=== PATIENT | female | born 1955 | race American Indian/Alaskan Native ===

== ENCOUNTER 2017-02-23 09:04 | Day surgery (SDC) | payer MEDICAID ==
[~2017-02-23 09:04] MED LIST: Metoclopramide 10 MG/2 ML SDV IV PRN
[2017-02-23] MEDS ORDERED: Propofol 1,000 MG/100 ML SDV ONE (12:15)
[2017-02-23 15:05] VITALS: BP 162/55
--- NOTE | 2017-02-23 16:13 | OR ---
DATE OF OPERATION: 02/23/2017 PREOPERATIVE DIAGNOSIS: Weight loss. POSTOPERATIVE DIAGNOSES: 1. Weight loss. 2. 2 cm sliding hiatal hernia. 3. Transverse colon polyp, otherwise normal colonoscopy. PROCEDURE: 1. Colonoscopy with snare cautery polypectomy. 2. Upper endoscopy. COMPLICATIONS: None. DRAINS: None. SPECIMENS: Transverse colon polyp. ESTIMATED BLOOD LOSS: Minimal. ANESTHESIA: General propofol anesthesia. INDICATION: Ms. Cardenas is a 61-year-old female with a history of weight loss, which is unexplained. She does have poor eating habits. She was sent for upper and lower endoscopy. The above-mentioned procedure were explained. The risks, benefits, complications were explained. Patient understood and agreed and was brought to the operating room. DESCRIPTION OF PROCEDURE: The patient was brought to the operating room, placed in the left lateral decubitus position. Satisfactory general propofol anesthesia was administered. We began by performing the colonoscopy. Rectal examination was within normal limits. I then placed the colonoscope by finger introduction into the rectum and subsequently advanced this to the level of the cecum. The cecum was identified by the appendiceal orifice, the ileocecal valve, as well as the cecal strap. Intubation of the terminal ileum revealed no abnormalities. Careful evaluation of mucosa was performed on withdrawal. This revealed no telangiectasias, no new plastic growths, no diverticula, however, there was a medium-sized 5- 10 mm polyp identified in the transverse colon just distal to the hepatic flexure. This was then removed by snare cautery polypectomy. This was then completely removed and retrieved. The polypectomy site was satisfactory. The remainder of the colon was within normal limits. I then performed a retroflexion maneuver in the rectum, which revealed no abnormalities. The colon was decompressed and the endoscope was withdrawn. Next, we turned the table around and perform an upper endoscopy with the patient now in a 45-degree head-up position with a mouth guard in place. The upper endoscope was then placed into the oral cavity and advanced under direct vision into the second portion of the duodenum. The duodenum was evaluated and appeared normal. The bulb appeared normal. The stomach appeared within normal limits. No significant findings of gastritis or ulceration. No neoplastic growths or telangiectasias. Retroflexion was performed in the stomach revealed a small hiatal hernia, which appeared to be the sliding type. The stomach was decompressed and careful evaluation revealed a 2 cm hiatal hernia. The Z-line was normal and the esophagus was normal as well on withdrawal. The endoscope was removed. The patient was woken in the OR and taken to the PACU for recovery. There were no complications. Instrument count was correct. Patient tolerated the procedure well. JERROD/CHINYERE /[id number]
== END 2017-02-23 14:57 | disposition home or self-care (01) ==
LOC: LB.SDS 09:04
PROVIDERS: ATTEND Surgery
DX: D12.3 Benign neoplasm of transverse colon (principal); K44.9 Diaphragmatic hernia without obstruction or gangrene; Z88.0 Allergy status to penicillin; Z88.8 Allergy status to other drugs, medicaments and biological substances; Z79.82 Long term (current) use of aspirin; Z79.899 Other long term (current) drug therapy
CPT/HCPCS: 43235; 45385; 82962; 88305; J2765; J7040; J3490

== ENCOUNTER 2017-06-23 13:51 | Emergency (ER) | payer MEDICARE ==
[2013-03-13 22:17] VITALS: BP 126/87
[2017-06-23] MEDS ORDERED: LORazepam 2 MG/ML MDV IM ONE (14:24)
--- NOTE | 2017-06-23 14:31 | EDM.PDOC ---
ED HPI GENERAL MEDICAL PROBLEM - General Chief Complaint: General Stated Complaint: SOB Time Seen by Provider: 06/23/17 14:00 Source of Information: Reports: Patient History Limitations: Reports: No Limitations - History of Present Illness INITIAL COMMENTS - FREE TEXT/NARRATIVE: According to patient she claims that she has been drinking lot of beer for the past 2 months now. She was clean for about 9 months. Pt has had multiple drug and alcohol abuse for all her life. Today she called her daughters to let them now she was going to kill herself. After calling them she tried to hand herself and the rope broke and when the Law enforcement officers were at her home she was trying to pull knife at herself. Ambulance was called and she is here in the emergency room. She keeps saying she wants to , as her boyfriend has been in the [facility] for past few months and she feels depressed. Pt is very anxious and hyperventilating in the emergency room. She has crying at times. She does smell of alcohol in her breath. Onset: Today Onset Date: 06/23/17 Onset Time: 13:30 Severity: Severe Improves with: Reports: None Worsens with: Reports: None Associated Symptoms: Denies: Confusion, Chest Pain, Cough, Fever/Chills, Loss of Appetite, Nausea/Vomiting, Rash, Seizure, Shortness of Breath, Syncope, Weakness - Related Data Allergies Allergy/AdvReac Type Severity Reaction Status Date / Time alcohol Allergy Severe Agitation Verified 02/22/17 13:21 amitriptyline Allergy Difficulty Verified 02/22/17 13:21 Breathing celecoxib [From Celebrex] Allergy Hives Verified 02/22/17 13:21 chlorpromazine Allergy Anaphylactic Verified 02/22/17 13:21 Shock duloxetine HCl Allergy Hives Verified 02/22/17 13:21 [From Cymbalta] gabapentin [From Neurontin] Allergy Nausea Verified 02/22/17 13:21 ketorolac tromethamine Allergy Shortness Verified 02/22/17 13:21 [From Toradol] of Breath Penicillins Allergy Difficulty Verified 02/22/17 13:21 Breathing tizanidine Allergy Nausea Verified 02/22/17 13:21 tramadol Allergy Shortness Verified 02/22/17 13:21 of Breath promethazine AdvReac Mild Anxiety Verified 02/22/17 13:21 quetiapine AdvReac Mild Anxiety Verified 02/22/17 13:21 naltrexone AdvReac Unknown Cannot Verified 02/22/17 13:21 Remember Home Meds: Home Meds Lisinopril 2.5 mg PO DAILY 03/08/13 [History] Metoprolol Succinate 50 mg PO DAILY 03/08/13 [History] Simvastatin [Zocor] 20 mg PO DAILY 10/01/13 [History] Acetaminophen [Acetaminophen Extra Strength] 500 mg PO Q4HWA PRN 02/11/14 [ History] Ibuprofen 800 mg PO TID PRN 02/11/14 [History] traZODone 300 mg PO DAILY 04/02/14 [History] Venlafaxine HCl [Venlafaxine ER] 150 mg PO DAILY 08/07/14 [History] metFORMIN [Glucophage] 500 mg PO BID 08/07/14 [History] risperiDONE [RisperiDAL] 0.5 mg PO BID 08/07/14 [History] risperiDONE [RisperiDAL] 2 mg PO DAILY 08/07/14 [History] Gabapentin [Neurontin] 800 mg PO BID 03/12/15 [History] Aspirin/Calcium Carbonate/Mag [Aspirin Buffered 325 mg Tab] 325 mg PO DAILY [History] Omeprazole 40 mg PO DAILY 02/22/17 [History] Past Medical History HEENT History: Reports: Impaired Vision Cardiovascular History: Reports: High Cholesterol, Hypertension, Stents Respiratory History: Reports: Asthma, COPD Gastrointestinal History: Reports: GERD Other Gastrointestinal History: unknown Genitourinary History: Reports: UTI, Recurrent [employer] History: Reports: Musculoskeletal History: Reports: Back Pain, Chronic, Other (See Below) Other Musculoskeletal History: Diabetic Neuropathy Neurological History: Reports: Neuropathy, Diabetic Psychiatric History: Reports: Addiction, Anxiety, Bipolar, Depression, Emotional Problems, Psych Hospitalization(s), Schizophrenia, Suicide Attempt Endocrine/Metabolic History: Reports: Diabetes, Type II Other Hematologic History: unknown - Infectious Disease History Infectious Disease History: Reports: Chicken Pox - Past Surgical History GI Surgical History: Reports: Appendectomy, Cholecystectomy Social & Family History - Family History Family Medical History: Noncontributory - Tobacco Use Smoking Status *Q: Current Every Day Smoker Years of Tobacco use: 50 Packs/Tins Daily: 1 Used Tobacco, but Quit: No Second Hand Smoke Exposure: Yes - Caffeine Use Caffeine Use: Reports: Coffee, Soda - Alcohol Use Days Per Week of Alcohol Use: 0 Number of Drinks Per Day: 4 Total Drinks Per Week: 0 - Recreational Drug Use Recreational Drug Use: Yes Drug Use in Last 12 Months: No Recreational Drug Type: Reports: Marijuana/Hashish, Morphine, Oxycodone, Valium Recreational Drug Use Frequency: Daily Recreational Drug Last Use: today ED ROS GENERAL - Review of Systems Review Of Systems: See Below Constitutional: Denies: Fever, Chills, Malaise, Weakness HEENT: Denies: Sinus Problem, Throat Pain, Throat Swelling Respiratory: Denies: Shortness of Breath, Wheezing, Pleuritic Chest Pain, Cough , Sputum Cardiovascular: Denies: Chest Pain, Lightheadedness Endocrine: Denies: Fatigue GI/Abdominal: Denies: Abdominal Pain, Nausea, Vomiting Musculoskeletal: Denies: Neck Pain, Joint Pain, Joint Swelling Skin: Denies: Cyanosis, Bruising, Pruritis, Rash Psychiatric: Reports: Agitation, Anxiety, Depression, Suicidal Ideation. Denies : Confusion, Cravings, Hallucinations, Homicidal Ideation, Mood Lability ED EXAM, GENERAL - Physical Exam Exam: See Below Exam Limited By: No Limitations General Appearance: Alert, WD/WN, No Apparent Distress, Anxious Eye Exam: Bilateral Eye: EOMI, PERRL Ears: Normal External Exam, Normal Canal, Hearing Grossly Normal, Normal TMs Ear Exam: Bilateral Ear: Auricle Normal, Canal Normal, TM normal Nose: Normal Inspection, Normal Mucosa, No Blood Throat/Mouth: Normal Inspection, Normal Lips, Normal Teeth, Normal Gums, Normal Oropharynx, Normal Voice, No Airway Compromise Head: Atraumatic, Normocephalic Neck: Normal Inspection, Supple, Non-Tender, Full Range of Motion Respiratory/Chest: No Respiratory Distress, Lungs Clear, Normal Breath Sounds, No Accessory Muscle Use, Chest Non-Tender Cardiovascular: Normal Peripheral Pulses, Regular Rate, Rhythm, No Edema, No Gallop, No JVD, No Murmur, No Rub GI/Abdominal: Normal Bowel Sounds, Soft, Non-Tender, No Organomegaly, No Distention, No Abnormal Bruit, No Mass Neurological: Alert, Oriented, CN II-XII Intact, Normal Cognition, Normal Gait, Normal Reflexes, No Motor/Sensory Deficits Psychiatric: Anxious, Tearful Course - Vital Signs Text/Narrative:: Pt was brought in by ambulance as law enforcement called ambulance when she tried to hurt herself with the knife. Pt is here in the emergency room agitated and very anxious. She does agree that she has been suicidal and it is because of her boyfriend being in [facility]. She has been drinking a lot more in the past 2 months. She was hyperventilating in the emergency room, hence had to give ativan 2mg IM and also tried the paper bag breathing, with which she did settle down. Labs were ordered. her CBC, UA and TSh are normal . Her Random blood sugar is 278 and her UA shows 500 sugar. She might not be taking her meds as prescribed. Her ETOH 245. Her drug screen shows positive Marijuana. Once all the results were available, I did contact [facility] and discussed the patients condition and reports with the psych intake nurse. the only issue was to make sure that her Blood sugar is under 200. Repeat ETOH level at 4:30 was done and it was at 201. Pt has been on 72 hrs hold as she has attempted 2 suicidal attempt in past 6 hrs and is depressed. Pt needs inpatient psych evaluation. Pt is stable and sleeping. I did talk to , the psychiatrist decontamination technician at [facility]. did agree to accept patient. As pt does smoke 1PPD have ordered Nicotine patch 21 mcg. PT will be transferred by BLS ambulance to [facility]. Further care per . Last Recorded V/S: Last Vital Signs Temp 97.9 F 06/23/17 14:30 Pulse 98 06/23/17 14:30 Resp 22 H 06/23/17 14:30 BP 115/63 06/23/17 14:30 Pulse Ox 100 06/23/17 14:30 - Orders/Labs/Meds Labs: Laboratory Tests 06/23/17 06/23/17 06/23/17 Range/Units 14:38 14:38 14:38 WBC 11.8 H D (4.0-11.0) K/uL RBC 4.71 (3.80-5.80) M/uL Hgb 14.8 (11.5-16.5) g/dL Hct 41.7 (37.0-47.0) % MCV 89 (76-96) fL MCH 31.4 (27.0-32.0) pg MCHC 35.5 H (31.0-35.0) g/dL RDW 14.6 (11.0-16.0) % Plt Count 341 D (150-500) K/uL MPV 8.4 (6.0-10.0) fL Neut % (Auto) 55.7 (45.0-70.0) % Lymph % (Auto) 36.7 (20.0-40.0) % [place] % (Auto) 7.1 (3.0-10.0) % Eos % (Auto) 0.0 L (1.0-5.0) % Baso % (Auto) 0.5 (0.0-0.5) % Neut # (Auto) 6.56 (2.00-7.50) K/uL Lymph # (Auto) 4.33 H (1.50-4.00) K/uL [place] # (Auto) 0.84 H (0.20-0.80) K/uL Eos # (Auto) 0.00 L (0.04-0.40) K/uL Baso # (Auto) 0.06 (0.02-0.10) K/uL Sodium 135 L (136-145) mmol/L Potassium 4.0 (3.5-5.1) mmol/L Chloride 100 (98-107) mmol/L Carbon Dioxide 18.7 L D (21.0-32.0) mmol/L Anion Gap 20.3 H (5.0-15.0) mmol/L BUN 4 L D (8-26) mg/dL Creatinine 0.79 (0.55-1.02) mg/dL Est Cr Clr Drug Dosing TNP Estimated GFR (MDRD) > 60 (>60) MLS/MIN BUN/Creatinine Ratio 5.1 L (6-25) Glucose 278 H D (74-100) mg/dL Calcium 8.5 (8.5-10.1) mg/dL Total Bilirubin 0.5 D (0.0-1.0) mg/dL AST 48 H (15-37) U/L ALT 31 (12-78) U/L Alkaline Phosphatase 85 (46-116) U/L Total Protein 7.6 (6.4-8.2) g/dL Albumin 3.7 (3.4-5.0) g/dL Globulin 3.9 (2.2-4.2) g/dL Albumin/Globulin Ratio 0.9 (0.8-2.0) TSH, Ultra Sensitive 1.038 D (0.358-3.740) uIU/mL Urine Color Urine Appearance (CLEAR) Urine pH (5.0-8.0) Ur Specific [place] (1.003-1.030) Urine Protein (NEGATIVE) mg/dL Urine Glucose (UA) (NEGATIVE) mg/dL Urine Ketones (NEGATIVE) mg/dL Urine Occult Blood (NEGATIVE) Urine Nitrite (NEGATIVE) Urine Bilirubin (NEGATIVE) Urine Urobilinogen (0.2-1.0) E.U./dL Ur Leukocyte Esterase (NEGATIVE) Urine RBC /HPF Urine WBC /HPF Ur Squamous Epith Cells /HPF Urine Opiates Screen (NEGATIVE) Ur Oxycodone Screen (NEGATIVE) Urine Methadone Screen (NEGATIVE) U Acetaminophen Screen (NEGATIVE) Ur Barbiturates Screen (NEGATIVE) Ur Tricyclics Screen (NEGATIVE) Ur Phencyclidine Scrn (NEGATIVE) Ur Amphetamine Screen (NEGATIVE) U Methamphetamines Scrn (NEGATIVE) U Benzodiazepines Scrn (NEGATIVE) U Cocaine Metab Screen (NEGATIVE) U Marijuana (THC) Screen (NEGATIVE) Ethyl Alcohol (0.0-0.0) mg/dL 06/23/17 06/23/17 06/23/17 Range/Units 14:38 14:43 14:43 WBC (4.0-11.0) K/uL RBC (3.80-5.80) M/uL Hgb (11.5-16.5) g/dL Hct (37.0-47.0) % MCV (76-96) fL MCH (27.0-32.0) pg MCHC (31.0-35.0) g/dL RDW (11.0-16.0) % Plt Count (150-500) K/uL MPV (6.0-10.0) fL Neut % (Auto) (45.0-70.0) % Lymph % (Auto) (20.0-40.0) % [place] % (Auto) (3.0-10.0) % Eos % (Auto) (1.0-5.0) % Baso % (Auto) (0.0-0.5) % Neut # (Auto) (2.00-7.50) K/uL Lymph # (Auto) (1.50-4.00) K/uL [place] # (Auto) (0.20-0.80) K/uL Eos # (Auto) (0.04-0.40) K/uL Baso # (Auto) (0.02-0.10) K/uL Sodium (136-145) mmol/L Potassium (3.5-5.1) mmol/L Chloride (98-107) mmol/L Carbon Dioxide (21.0-32.0) mmol/L Anion Gap (5.0-15.0) mmol/L BUN (8-26) mg/dL Creatinine (0.55-1.02) mg/dL Est Cr Clr Drug Dosing Estimated GFR (MDRD) (>60) MLS/MIN BUN/Creatinine Ratio (6-25) Glucose (74-100) mg/dL Calcium (8.5-10.1) mg/dL Total Bilirubin (0.0-1.0) mg/dL AST (15-37) U/L ALT (12-78) U/L Alkaline Phosphatase (46-116) U/L Total Protein (6.4-8.2) g/dL Albumin (3.4-5.0) g/dL Globulin (2.2-4.2) g/dL Albumin/Globulin Ratio (0.8-2.0) TSH, Ultra Sensitive (0.358-3.740) uIU/mL Urine Color Yellow Urine Appearance Clear (CLEAR) Urine pH 5.0 (5.0-8.0) Ur Specific [place] <= 1.005 (1.003-1.030) Urine Protein Negative (NEGATIVE) mg/dL Urine Glucose (UA) 500 H (NEGATIVE) mg/dL Urine Ketones Negative (NEGATIVE) mg/dL Urine Occult Blood Trace-lysed H (NEGATIVE) Urine Nitrite Negative (NEGATIVE) Urine Bilirubin Negative (NEGATIVE) Urine Urobilinogen 0.2 (0.2-1.0) E.U./dL Ur Leukocyte Esterase Negative (NEGATIVE) Urine RBC 0-5 H /HPF Urine WBC 0-5 H /HPF Ur Squamous Epith Cells Moderate /HPF Urine Opiates Screen Negative (NEGATIVE) Ur Oxycodone Screen Negative (NEGATIVE) Urine Methadone Screen Negative (NEGATIVE) U Acetaminophen Screen Negative (NEGATIVE) Ur Barbiturates Screen Negative (NEGATIVE) Ur Tricyclics Screen Negative (NEGATIVE) Ur Phencyclidine Scrn Negative (NEGATIVE) Ur Amphetamine Screen Negative (NEGATIVE) U Methamphetamines Scrn Negative (NEGATIVE) U Benzodiazepines Scrn Negative (NEGATIVE) U Cocaine Metab Screen Negative (NEGATIVE) U Marijuana (THC) Screen Positive H (NEGATIVE) Ethyl Alcohol 245.0 H (0.0-0.0) mg/dL 06/23/17 Range/Units 16:35 WBC (4.0-11.0) K/uL RBC (3.80-5.80) M/uL Hgb (11.5-16.5) g/dL Hct (37.0-47.0) % MCV (76-96) fL MCH (27.0-32.0) pg MCHC (31.0-35.0) g/dL RDW (11.0-16.0) % Plt Count (150-500) K/uL MPV (6.0-10.0) fL Neut % (Auto) (45.0-70.0) % Lymph % (Auto) (20.0-40.0) % [place] % (Auto) (3.0-10.0) % Eos % (Auto) (1.0-5.0) % Baso % (Auto) (0.0-0.5) % Neut # (Auto) (2.00-7.50) K/uL Lymph # (Auto) (1.50-4.00) K/uL [place] # (Auto) (0.20-0.80) K/uL Eos # (Auto) (0.04-0.40) K/uL Baso # (Auto) (0.02-0.10) K/uL Sodium (136-145) mmol/L Potassium (3.5-5.1) mmol/L Chloride (98-107) mmol/L Carbon Dioxide (21.0-32.0) mmol/L Anion Gap (5.0-15.0) mmol/L BUN (8-26) mg/dL Creatinine (0.55-1.02) mg/dL Est Cr Clr Drug Dosing Estimated GFR (MDRD) (>60) MLS/MIN BUN/Creatinine Ratio (6-25) Glucose (74-100) mg/dL Calcium (8.5-10.1) mg/dL Total Bilirubin (0.0-1.0) mg/dL AST (15-37) U/L ALT (12-78) U/L Alkaline Phosphatase (46-116) U/L Total Protein (6.4-8.2) g/dL Albumin (3.4-5.0) g/dL Globulin (2.2-4.2) g/dL Albumin/Globulin Ratio (0.8-2.0) TSH, Ultra Sensitive (0.358-3.740) uIU/mL Urine Color Urine Appearance (CLEAR) Urine pH (5.0-8.0) Ur Specific [place] (1.003-1.030) Urine Protein (NEGATIVE) mg/dL Urine Glucose (UA) (NEGATIVE) mg/dL Urine Ketones (NEGATIVE) mg/dL Urine Occult Blood (NEGATIVE) Urine Nitrite (NEGATIVE) Urine Bilirubin (NEGATIVE) Urine Urobilinogen (0.2-1.0) E.U./dL Ur Leukocyte Esterase (NEGATIVE) Urine RBC /HPF Urine WBC /HPF Ur Squamous Epith Cells /HPF Urine Opiates Screen (NEGATIVE) Ur Oxycodone Screen (NEGATIVE) Urine Methadone Screen (NEGATIVE) U Acetaminophen Screen (NEGATIVE) Ur Barbiturates Screen (NEGATIVE) Ur Tricyclics Screen (NEGATIVE) Ur Phencyclidine Scrn (NEGATIVE) Ur Amphetamine Screen (NEGATIVE) U Methamphetamines Scrn (NEGATIVE) U Benzodiazepines Scrn (NEGATIVE) U Cocaine Metab Screen (NEGATIVE) U Marijuana (THC) Screen (NEGATIVE) Ethyl Alcohol 201.0 H (0.0-0.0) mg/dL Meds: Medications Discontinued Medications Generic Name Dose Route Start Last Admin Trade Name Freq PRN Reason Stop Dose Admin Lorazepam 2 mg 06/23/17 14:24 06/23/17 14:23 Ativan IM 06/23/17 14:25 2 mg ONETIME ONE Administration Departure - Departure Time of Disposition: 17:45 Disposition: DC/Tfer to Psych Hosp/Unit 65 Condition: Fair Clinical Impression: Suicide attempt by hanging - Discharge Information Referrals: PCP,None [Primary Care Provider] - Forms: ED Department Discharge - Problem List & Annotations (1) Alcohol intoxication SNOMED Code(s): 04859609 Code(s): F10.129 - ALCOHOL ABUSE WITH INTOXICATION, UNSPECIFIED Status: Acute Current Visit: No (2) Suicide attempt by hanging SNOMED Code(s): 404742743 Code(s): T71.162A - ASPHYXIATION DUE TO HANGING, INTENTIONAL SELF-HARM, INIT Status: Acute Current Visit: Yes - Problem List Review Problem List Initiated/Reviewed/Updated: Yes - Assessment/Plan Assessment:: Alcohol abuse with Suicidal attempt by hanging Plan: Pt was brought in by ambulance as law enforcement called ambulance when she tried to hurt herself with the knife. Pt is here in the emergency room agitated and very anxious. She does agree that she has been suicidal and it is because of her boyfriend being in [facility]. She has been drinking a lot more in the past 2 months. She was hyperventilating in the emergency room, hence had to give ativan 2mg IM and also tried the paper bag breathing, with which she did settle down. Labs were ordered. her CBC, UA and TSh are normal . Her Random blood sugar is 278 and her UA shows 500 sugar. She might not be taking her meds as prescribed. Her ETOH 245. Her drug screen shows positive Marijuana. Once all the results were available, I did contact [facility] and discussed the patients condition and reports with the psych intake nurse. the only issue was to make sure that her Blood sugar is under 200. Repeat ETOH level at 4:30 was done and it was at 201. Pt has been on 72 hrs hold as she has attempted 2 suicidal attempt in past 6 hrs and is depressed. Pt needs inpatient psych evaluation. Pt is stable and sleeping. I did talk to , the psychiatrist decontamination technician at [facility]. did agree to accept patient. As pt does smoke 1PPD have ordered Nicotine patch 21 mcg. PT will be transferred by BLS ambulance to [facility]. Further care per .
[2017-06-23 14:34] VITALS: BP 115/63
[2017-06-23] MEDS ORDERED: Nicotine 21 MG/24 Hr Patch ONE (17:38)
[2017-06-23] MEDS ORDERED: Nicotine 21 MG/24 Hr Patch TRDERM ONE (17:43)
== END 2017-06-23 18:25 ==
LOC: LB.ED 13:51
DX: T14.91XA Suicide attempt, initial encounter (principal); E78.00 Pure hypercholesterolemia, unspecified; I10 Essential (primary) hypertension; J44.9 Chronic obstructive pulmonary disease, unspecified; K21.9 Gastro-esophageal reflux disease without esophagitis; E11.40 Type 2 diabetes mellitus with diabetic neuropathy, unspecified; F17.210 Nicotine dependence, cigarettes, uncomplicated; X83.8XXA Intentional self-harm by other specified means, initial encounter; Z88.8 Allergy status to other drugs, medicaments and biological substances
CPT/HCPCS: 36415; 80053; 80307; 81001; 84443; 85025; 96372; 99285; A0425; A0429; A0888; A9270; G0480; J2060

== ENCOUNTER 2018-11-01 16:26 | Emergency (ER) | payer MEDICAID ==
[2018-11-01] MEDS ORDERED: Albuterol/Ipratropium 3.0-0.5 MG/3 ML Neb Soln NEB STA (16:51)
[2018-11-01] MEDS ORDERED: Albuterol/Ipratropium 3.0-0.5 MG/3 ML Neb Soln ONE ×3 (16:55→18:00)
--- NOTE | 2018-11-01 16:57 | EDM.PDOC ---
ED HPI GENERAL MEDICAL PROBLEM - General Chief Complaint: Respiratory Problem Stated Complaint: TROUBLE BREATHING Time Seen by Provider: 11/01/18 16:45 Source of Information: Reports: Patient History Limitations: Reports: No Limitations - History of Present Illness INITIAL COMMENTS - FREE TEXT/NARRATIVE: According to patient she has been having nasal congestion for past 2-3 days. Now she has been having productive cough, which is mucoid and thick. Cough has been getting worse, and feels short of breath. No fever or chills. No chest pain. No chest wall pain or pain with breathing.Pt's SPO2 is 98% on room air Pt does have Shortness of breath form her COPD. She still smokes. Onset: Gradual Onset Date: 10/30/18 Duration: Getting Worse Severity: Moderate Improves with: Reports: None Worsens with: Reports: None Associated Symptoms: Reports: Cough, Shortness of Breath. Denies: Confusion, Chest Pain, Diaphoresis, Fever/Chills, Nausea/Vomiting, Rash, Seizure, Syncope, Weakness - Related Data Allergies Allergy/AdvReac Type Severity Reaction Status Date / Time alcohol Allergy Severe Agitation Verified 11/01/18 16:39 amitriptyline Allergy Difficulty Verified 11/01/18 16:39 Breathing celecoxib [From Celebrex] Allergy Hives Verified 11/01/18 16:39 chlorpromazine Allergy Anaphylactic Verified 11/01/18 16:39 Shock duloxetine HCl Allergy Hives Verified 11/01/18 16:39 [From Cymbalta] gabapentin [From Neurontin] Allergy Nausea Verified 11/01/18 16:39 ketorolac tromethamine Allergy Shortness Verified 11/01/18 16:39 [From Toradol] of Breath Penicillins Allergy Difficulty Verified 11/01/18 16:39 Breathing tizanidine Allergy Nausea Verified 11/01/18 16:39 tramadol Allergy Shortness Verified 11/01/18 16:39 of Breath promethazine AdvReac Mild Anxiety Verified 11/01/18 16:39 quetiapine AdvReac Mild Anxiety Verified 11/01/18 16:39 naltrexone AdvReac Unknown Cannot Verified 11/01/18 16:39 Remember Home Meds: Home Meds Lisinopril 2.5 mg PO DAILY 03/08/13 [History] Metoprolol Succinate 50 mg PO DAILY 03/08/13 [History] Simvastatin [Zocor] 20 mg PO DAILY 10/01/13 [History] Acetaminophen [Acetaminophen Extra Strength] 500 mg PO Q4HWA PRN 02/11/14 [ History] Ibuprofen 800 mg PO TID PRN 02/11/14 [History] traZODone 300 mg PO DAILY 04/02/14 [History] Venlafaxine HCl [Venlafaxine ER] 150 mg PO DAILY 08/07/14 [History] metFORMIN [Glucophage] 500 mg PO BID 08/07/14 [History] risperiDONE [RisperiDAL] 0.5 mg PO BID 08/07/14 [History] risperiDONE [RisperiDAL] 2 mg PO DAILY 08/07/14 [History] Gabapentin [Neurontin] 800 mg PO BID 03/12/15 [History] Aspirin/Calcium Carbonate/Mag [Aspirin Buffered 325 mg Tab] 325 mg PO DAILY [History] Omeprazole 40 mg PO DAILY 02/22/17 [History] Past Medical History HEENT History: Reports: Impaired Vision Cardiovascular History: Reports: High Cholesterol, Hypertension, Stents Respiratory History: Reports: Asthma, COPD Gastrointestinal History: Reports: GERD Other Gastrointestinal History: unknown Genitourinary History: Reports: UTI, 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: Musculoskeletal History: Reports: Back Pain, Chronic, Other (See Below) Other Musculoskeletal History: Diabetic Neuropathy Neurological History: Reports: Neuropathy, Diabetic Psychiatric History: Reports: Addiction, Anxiety, Bipolar, Depression, Emotional Problems, Psych Hospitalization(s), Schizophrenia, Suicide Attempt Endocrine/Metabolic History: Reports: Diabetes, Type II Other Hematologic History: unknown - Infectious Disease History Infectious Disease History: Reports: Chicken Pox - Past Surgical History GI Surgical History: Reports: Appendectomy, Cholecystectomy Social & Family History - Family History Family Medical History: Noncontributory - Caffeine Use Caffeine Use: Reports: Coffee, Soda ED ROS GENERAL - Review of Systems Review Of Systems: See Below Constitutional: Denies: Fever, Chills, Malaise, Weakness HEENT: Reports: Rhinitis. Denies: Ear Pain, Throat Pain, Vertigo Respiratory: Reports: Shortness of Breath, Cough, Sputum. Denies: Pleuritic Chest Pain Cardiovascular: Denies: Chest Pain, Lightheadedness GI/Abdominal: Denies: Abdominal Pain, Nausea, Vomiting : Denies: Dysuria, Flank Pain, Frequency Musculoskeletal: Denies: Joint Pain, Joint Swelling Skin: Denies: Bruising, Pruritis, Rash Neurological: Denies: Confusion, Dizziness, Headache, Numbness, Tingling ED EXAM, GENERAL - Physical Exam Exam: See Below Exam Limited By: No Limitations General Appearance: Alert, WD/WN, No Apparent Distress Eye Exam: Bilateral Eye: EOMI, PERRL Ears: Normal External Exam, Normal Canal, Hearing Grossly Normal, Normal TMs Ear Exam: Bilateral Ear: Auricle Normal, Canal Normal, TM normal Nose: Normal Inspection, Normal Mucosa, No Blood, Nasal Drainage (mucoid) Throat/Mouth: Normal Inspection, Normal Lips, Normal Teeth, Normal Gums, Normal Oropharynx, Normal Voice, No Airway Compromise Head: Atraumatic, Normocephalic Neck: Normal Inspection, Supple, Non-Tender, Full Range of Motion Respiratory/Chest: No Accessory Muscle Use, Chest Non-Tender, Decreased Breath Sounds (b/l), Other (scatterred ales and rhonchi over lung roland.) Course - Vital Signs Text/Narrative:: Pt's CBC shows white count of 10.9K and her chest X-ray appear stable. Pt has viral URI and might have triggered bronchospasm , also patient smokes and has COPD. Her wheezing has improved. Pt reassured that she does not have pneumonia. Appears like viral bronchitis with bronchospasm. Advised to use Dioneb every 8 hrs as needed for wheezing or shortness of breath. Stressed on smoking cessation. Followup if she develops fever, chills, worsening shortness of breath. Other calzada recheck in clinic next week. Last Recorded V/S: Last Vital Signs Temp 98.3 F 11/01/18 16:28 Pulse 69 11/01/18 16:28 Resp 20 11/01/18 16:28 BP 142/67 H 11/01/18 16:28 Pulse Ox 98 11/01/18 16:28 - Orders/Labs/Meds Orders: Active Orders 24 hr Category Date Time Status RT Aerosol Therapy [RC] ASDIRECTED Care 11/01/18 16:51 Active Chest 1V Frontal [CR] Stat Exams 11/01/18 16:52 Taken Labs: Laboratory Tests 11/01/18 Range/Units 17:10 WBC 10.3 (4.0-11.0) K/uL RBC 3.44 L (3.80-5.80) M/uL Hgb 11.2 L (11.5-16.5) g/dL Hct 34.9 L (37.0-47.0) % MCV 102 H (76-96) fL MCH 32.6 H (27.0-32.0) pg MCHC 32.1 (31.0-35.0) g/dL RDW 14.3 (11.0-16.0) % Plt Count 287 D (150-500) K/uL MPV 9.0 (6.0-10.0) fL Neut % (Auto) 59.8 (45.0-70.0) % Lymph % (Auto) 32.8 (20.0-40.0) % [place] % (Auto) 7.0 (3.0-10.0) % Eos % (Auto) 0.0 L (1.0-5.0) % Baso % (Auto) 0.4 (0.0-0.5) % Neut # (Auto) 6.16 (2.00-7.50) K/uL Lymph # (Auto) 3.37 (1.50-4.00) K/uL [place] # (Auto) 0.72 (0.20-0.80) K/uL Eos # (Auto) 0.00 L (0.04-0.40) K/uL Baso # (Auto) 0.04 (0.02-0.10) K/uL Meds: Medications Discontinued Medications Generic Name Dose Route Start Last Admin Trade Name Freq PRN Reason Stop Dose Admin Albuterol/Ipratropium Confirm 11/01/18 16:55 11/01/18 17:02 Duoneb 3.0-0.5 Mg/3 Ml Administered 11/01/18 16:56 Not Given Dose 3 ml .ROUTE .STK-MED ONE Albuterol/Ipratropium 3 ml 11/01/18 16:51 11/01/18 16:50 Duoneb 3.0-0.5 Mg/3 Ml NEB 11/01/18 16:52 3 ml STAT STA Administration Departure - Departure Time of Disposition: 17:50 Disposition: Home, Self-Care 01 Condition: Fair Clinical Impression: Bronchitis with bronchospasm - Discharge Information *PRESCRIPTION DRUG MONITORING PROGRAM REVIEWED*: Not Applicable *COPY OF PRESCRIPTION DRUG MONITORING REPORT IN PATIENT NATE: Not Applicable Referrals: PCP,None [Primary Care Provider] - Forms: ED Department Discharge Additional Instructions: Pt's CBC shows white count of 10.9K and her chest X-ray appear stable. Pt has viral URI and might have triggered bronchospasm , also patient smokes and has COPD. Her wheezing has improved. Pt reassured that she does not have pneumonia. Appears like viral bronchitis with bronchospasm. Advised to use Dioneb every 8 hrs as needed for wheezing or shortness of breath. Stressed on smoking cessation. Followup if she develops fever, chills, worsening shortness of breath. Other calzada recheck in clinic next week. - Problem List & Annotations (1) Bronchitis with bronchospasm SNOMED Code(s): 60909793, 25011172 Code(s): J20.9 - ACUTE BRONCHITIS, UNSPECIFIED Status: Acute Current Visit: Yes - Problem List Review Problem List Initiated/Reviewed/Updated: Yes - My Orders Last 24 Hours: My Active Orders 11/01/18 16:51 RT Aerosol Therapy [RC] ASDIRECTED 11/01/18 16:52 Chest 1V Frontal [CR] Stat - Assessment/Plan Last 24 Hours: My Active Orders 11/01/18 16:51 RT Aerosol Therapy [RC] ASDIRECTED 11/01/18 16:52 Chest 1V Frontal [CR] Stat Assessment:: Bronchitis with bronchospasm Plan: Pt's CBC shows white count of 10.9K and her chest X-ray appear stable. Pt has viral URI and might have triggered bronchospasm , also patient smokes and has COPD. Her wheezing has improved. Pt reassured that she does not have pneumonia. Appears like viral bronchitis with bronchospasm. Advised to use Dioneb every 8 hrs as needed for wheezing or shortness of breath. Stressed on smoking cessation. Followup if she develops fever, chills, worsening shortness of breath. Other calzada recheck in clinic next week.
[2018-11-01 17:08] VITALS: BP 142/67
[2018-11-01] MEDS ORDERED: Albuterol 0.083% 2.5 MG/3 ML Neb Soln ONE (17:50)
--- NOTE | 2018-11-05 09:10 | CR ---
DATE OF SERVICE: 11/01/2018 CLINICAL DATA: Shortness of breath and cough. FRONTAL VIEW OF THE CHEST: Comparison is made to a prior exam dated 02 October 2018. The heart size is normal. The lungs are clear. No pneumothorax. No pleural effusions. No evidence of acute intrathoracic disease. [id number] [facility]
== END 2018-11-01 17:55 | disposition home or self-care (01) ==
LOC: LB.ED 16:26
DX: J40 Bronchitis, not specified as acute or chronic (principal); J98.01 Acute bronchospasm; E11.40 Type 2 diabetes mellitus with diabetic neuropathy, unspecified; I10 Essential (primary) hypertension; K21.9 Gastro-esophageal reflux disease without esophagitis; E78.00 Pure hypercholesterolemia, unspecified; Z79.899 Other long term (current) drug therapy; Z79.84 Long term (current) use of oral hypoglycemic drugs; Z88.8 Allergy status to other drugs, medicaments and biological substances; Z88.0 Allergy status to penicillin; Z88.1 Allergy status to other antibiotic agents
CPT/HCPCS: 36415; 71045; 85025; 94640; 99285-25; J7620-GY

== ENCOUNTER 2018-12-16 18:42 | Observation (INO) | payer MEDICAID ==
--- NOTE | 2018-12-16 20:45 | PCM.HP ---
H&P History of Present Illness - General Date of Service: 12/16/18 Source of Information: Patient, Provider History Limitations: Reports: No Limitations - History of Present Illness Initial Comments - Free Text/Narative: This is a 63yo F here for management and monitoring of her labs. Dr. Madrid called regarding her labs drawn today and management due to concerns of her many co-morbidities and pending cardiac catheterization on and to stabilize her prior to her cath. She has an extremely elevated glucose, persistent low magnesium and fluctuating electrolytes that require monitoring prior to her procedure to clear her for surgery for her PAD. Onset of Symptoms: Reports: Other Duration of Symptoms: Reports: Waxing/Waning - Related Data Allergies/Adverse Reactions: Allergies Allergy/AdvReac Type Severity Reaction Status Date / Time alcohol Allergy Severe Agitation Verified 11/01/18 16:39 acetylcysteine Allergy Hives Verified 12/17/18 06:30 [From Mucomyst] amitriptyline Allergy Difficulty Verified 11/01/18 16:39 Breathing celecoxib [From Celebrex] Allergy Hives Verified 11/01/18 16:39 chlorpromazine Allergy Anaphylactic Verified 11/01/18 16:39 Shock duloxetine HCl Allergy Hives Verified 11/01/18 16:39 [From Cymbalta] ketorolac tromethamine Allergy Shortness Verified 11/01/18 16:39 [From Toradol] of Breath Penicillins Allergy Difficulty Verified 11/01/18 16:39 Breathing pregabalin [From Lyrica] Allergy Edema Verified 12/17/18 06:29 tizanidine Allergy Nausea Verified 11/01/18 16:39 tramadol Allergy Shortness Verified 11/01/18 16:39 of Breath promethazine AdvReac Mild Anxiety Verified 11/01/18 16:39 quetiapine AdvReac Mild Anxiety Verified 11/01/18 16:39 naltrexone AdvReac Unknown Cannot Verified 11/01/18 16:39 Remember Home Medications: Home Meds Lisinopril 2.5 mg PO DAILY 03/08/13 [History] Metoprolol Succinate 25 mg PO DAILY 03/08/13 [History] Ibuprofen 800 mg PO TID PRN 02/11/14 [History] Venlafaxine HCl [Venlafaxine ER] 225 mg PO DAILY 08/07/14 [History] metFORMIN [Glucophage] 1,000 mg PO BID 08/07/14 [History] risperiDONE [RisperiDAL] 3 mg PO DAILY 08/07/14 [History] Gabapentin [Neurontin] 800 mg PO BID 03/12/15 [History] Omeprazole 20 mg PO BID 02/22/17 [History] Albuterol [Ventolin HFA] 2 puff .XX Q6HR 12/16/18 [History] Calcium Carbonate/Vitamin D3 [Calcium 600 + Vit D Tablet] 2 each PO DAILY [History] Cyproheptadine HCl 4 mg PO BID 12/16/18 [History] Magnesium Oxide [Magnesium] 800 mg PO DAILY 12/16/18 [History] Megestrol [Megace] 80 mg PO DAILY 12/16/18 [History] Ondansetron HCl [Zofran] 4 mg PO DAILY 12/16/18 [History] Varenicline [Chantix] 1 mg PO DAILY 12/16/18 [History] atorvaSTATin [Lipitor] 40 mg PO DAILY 12/16/18 [History] buPROPion [buPROPion XL] 150 mg PO DAILY 12/16/18 [History] glipiZIDE [Glipizide ER] 5 mg PO DAILY 12/16/18 [History] Aspirin 162 mg PO DAILY 12/17/18 [History] Past Medical History HEENT History: Reports: Impaired Vision Cardiovascular History: Reports: High Cholesterol, Hypertension, Stents Respiratory History: Reports: Asthma, COPD Gastrointestinal History: Reports: GERD Other Gastrointestinal History: unknown Genitourinary History: Reports: UTI, 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: Musculoskeletal History: Reports: Back Pain, Chronic, Other (See Below) Other Musculoskeletal History: Diabetic Neuropathy Neurological History: Reports: Neuropathy, Diabetic Psychiatric History: Reports: Addiction, Anxiety, Bipolar, Depression, Emotional Problems, Psych Hospitalization(s), Schizophrenia, Suicide Attempt Endocrine/Metabolic History: Reports: Diabetes, Type II Other Hematologic History: unknown - Infectious Disease History Infectious Disease History: Reports: Chicken Pox - Past Surgical History GI Surgical History: Reports: Appendectomy, Cholecystectomy Social & Family History - Family History Family Medical History: Noncontributory - Caffeine Use Caffeine Use: Reports: Coffee, Soda H&P Review of Systems - Review of Systems: Review Of Systems: ROS reveals no pertinent complaints other than HPI. Exam - Exam Exam: See Below - Exam General: Alert, Oriented, Cooperative HEENT: PERRLA, Conjunctiva Clear, EACs Clear, EOMI Neck: Supple Lungs: Clear to Auscultation, Normal Respiratory Effort Cardiovascular: Regular Rate, Regular Rhythm GI/Abdominal Exam: Normal Bowel Sounds, Soft, Non-Tender Back Exam: Normal Inspection Extremities: Normal Inspection Peripheral Pulses: 2+: Dorsalis Pedis (L), Dorsalis Pedis (R) Skin: Warm, Dry, Intact Neurological: Cranial Nerves Intact, Reflexes Equal Bilateral Neuro Extensive - Mental Status: Alert, Oriented x3, Normal Mood/Affect - Patient Data Result Diagrams: 12/17/18 07:25 12/17/18 07:25 - Problem List (1) Hyperglycemia SNOMED Code(s): 72712606 ICD Code: R73.9 - HYPERGLYCEMIA, UNSPECIFIED Status: Acute Priority: High Current Visit: Yes Problem List Initiated/Reviewed/Updated: Yes Orders Last 24hrs: Active Orders 24 hr Category Date Time Status CBC WITH AUTO DIFF [HEME] AM Lab 12/17/18 05:11 Ordered CBC WITH AUTO DIFF [HEME] AM Lab 12/18/18 05:11 Ordered COMPREHENSIVE METABOLIC PN,CMP [CHEM] AM Lab 12/17/18 05:11 Ordered COMPREHENSIVE METABOLIC PN,CMP [CHEM] AM Lab 12/18/18 05:11 Ordered MAGNESIUM [CHEM] AM Lab 12/17/18 05:11 Ordered MAGNESIUM [CHEM] AM Lab 12/18/18 05:11 Ordered Assessment/Plan Comment:: Patient to be placed in observation for management of her hyperglycemia and other concerns discussed with Dr. Madrid. We will monitor her Magnesium, electrolytes and any other health concerns. Counseled on carbohydrate intake and glucose intake.
[2018-12-16] MEDS ORDERED: Sodium Chloride 0.9% 10 ML Syringe FLUSH PRN (20:47)
[2018-12-16] MEDS ORDERED: Sodium Chloride 0.9% with KCl 1,000 ML IV SCH (21:00)
[2018-12-16] MEDS: Magnesium Sulfate/Water 2 GM in Premix Bag 1 BAG IV SCH (21:46)
[2018-12-16] MEDS: Insulin Aspart 100 Units/ML 3 ML Pen SUBCUT SCH (21:56)
[2018-12-17] MEDS ORDERED: Omeprazole 20 MG Cap.CR**PT OWN PO SCH (07:00)
[2018-12-17] MEDS ORDERED: metFORMIN 1,000 MG Tab PO SCH (08:00)
[2018-12-17] MEDS ORDERED: glipiZIDE 5 MG Tab PO SCH ×2 (08:00)
[2018-12-17] MEDS ORDERED: Aspirin 81 MG Tab.EC PO SCH (08:00)
[2018-12-17] MEDS ORDERED: buPROPion 150 MG Tab.SR PO SCH (08:00)
[2018-12-17] MEDS ORDERED: Venlafaxine 75 MG Cap.ER PO SCH (08:00)
[2018-12-17] MEDS ORDERED: Magnesium Oxide 400 MG Tab PO SCH (08:00)
[2018-12-17] MEDS ORDERED: Gabapentin 400 MG Cap PO SCH (08:00)
[2018-12-17] MEDS ORDERED: glipiZIDE 5 MG Tab.ER PO SCH (08:00)
[2018-12-17] MEDS ORDERED: Metoprolol Succinate 25 MG Tab.ER PO SCH (08:00)
[2018-12-17] MEDS ORDERED: metFORMIN 500 MG Tab.ER PO SCH (08:00)
[2018-12-17] MEDS ORDERED: VARENICLINE PO SCH ×2 (08:00→09:00)
[2018-12-17] MEDS ORDERED: Lisinopril 2.5 MG Tab PO SCH (08:00)
[2018-12-17] MEDS ORDERED: Ondansetron 4 MG Tab.DIS PO SCH (08:00)
[2018-12-17] MEDS ORDERED: Calcium Carbonate/Vitamin D3 1500 MG-400 Units Tab PO SCH (08:00)
[2018-12-17] MEDS: Insulin Aspart 100 Units/ML 3 ML Pen SUBCUT SCH ×2 (08:26→13:22)
[2018-12-17] MEDS ORDERED: Albuterol 8 GM Inhaler INH PRN (08:55)
[2018-12-17] MEDS: MEGESTROL 40MG TABLET PO SCH ×2 (09:13→14:15)
[2018-12-17] MEDS: Magnesium Sulfate/Water 2 GM in Premix Bag 1 BAG IV SCH (09:20)
--- NOTE | 2018-12-17 11:03 | PCM.PN ---
- General Info Date of Service: 12/17/18 Subjective Update: Patient stable and appears to be doing well. We will monitor glucose again. Patient has no concerns. She would like to go home. Functional Status: Reports: Tolerating Diet, Ambulating, Urinating - Review of Systems General: Reports: No Symptoms HEENT: Reports: No Symptoms Pulmonary: Reports: No Symptoms Cardiovascular: Reports: No Symptoms Gastrointestinal: Reports: No Symptoms Genitourinary: Reports: No Symptoms Musculoskeletal: Reports: No Symptoms - Patient Data Vitals - Most Recent: Last Vital Signs Temp 37.2 C 12/17/18 08:00 Pulse 75 12/17/18 09:18 Resp 16 12/17/18 08:00 BP 135/54 L 12/17/18 09:18 Pulse Ox 97 12/17/18 01:24 Weight - Most Recent: 67.495 kg I&O - Last 24 Hours: Intake & Output 12/16/18 12/17/18 12/17/18 22:59 06:59 14:59 Intake Total 500 Balance 500 Lab Results Last 24 Hours: Laboratory Results - last 24 hr 12/16/18 12/17/18 12/17/18 Range/Units 20:50 01:42 07:19 WBC (4.0-11.0) K/uL RBC (3.80-5.80) M/uL Hgb (11.5-16.5) g/dL Hct (37.0-47.0) % MCV (76-96) fL MCH (27.0-32.0) pg MCHC (31.0-35.0) g/dL RDW (11.0-16.0) % Plt Count (150-500) K/uL MPV (6.0-10.0) fL Neut % (Auto) (45.0-70.0) % Lymph % (Auto) (20.0-40.0) % [place] % (Auto) (3.0-10.0) % Eos % (Auto) (1.0-5.0) % Baso % (Auto) (0.0-0.5) % Neut # (Auto) (2.00-7.50) K/uL Lymph # (Auto) (1.50-4.00) K/uL [place] # (Auto) (0.20-0.80) K/uL Eos # (Auto) (0.04-0.40) K/uL Baso # (Auto) (0.02-0.10) K/uL Sodium (136-145) mmol/L Potassium (3.5-5.1) mmol/L Chloride (98-107) mmol/L Carbon Dioxide (21.0-32.0) mmol/L Anion Gap (5.0-15.0) mmol/L BUN (8-26) mg/dL Creatinine (0.55-1.02) mg/dL Est Cr Clr Drug Dosing mL/min Estimated GFR (MDRD) (>60) MLS/MIN BUN/Creatinine Ratio (6-25) Glucose (74-100) mg/dL POC Glucose 387 H 244 H 243 H (74-110) mg/dL Calcium (8.5-10.1) mg/dL Magnesium (1.8-2.4) mg/dL Total Bilirubin (0.0-1.0) mg/dL AST (15-37) U/L ALT (12-78) U/L Alkaline Phosphatase (46-116) U/L Total Protein (6.4-8.2) g/dL Albumin (3.4-5.0) g/dL Globulin (2.2-4.2) g/dL Albumin/Globulin Ratio (0.8-2.0) 12/17/18 12/17/18 Range/Units 07:25 07:25 WBC 11.3 H (4.0-11.0) K/uL RBC 3.47 L (3.80-5.80) M/uL Hgb 10.8 L (11.5-16.5) g/dL Hct 32.9 L (37.0-47.0) % MCV 95 (76-96) fL MCH 31.1 (27.0-32.0) pg MCHC 32.8 (31.0-35.0) g/dL RDW 14.5 (11.0-16.0) % Plt Count 265 (150-500) K/uL MPV 9.3 (6.0-10.0) fL Neut % (Auto) 62.4 (45.0-70.0) % Lymph % (Auto) 30.7 (20.0-40.0) % [place] % (Auto) 6.6 (3.0-10.0) % Eos % (Auto) 0.0 L (1.0-5.0) % Baso % (Auto) 0.3 (0.0-0.5) % Neut # (Auto) 7.03 (2.00-7.50) K/uL Lymph # (Auto) 3.46 (1.50-4.00) K/uL [place] # (Auto) 0.74 (0.20-0.80) K/uL Eos # (Auto) 0.00 L (0.04-0.40) K/uL Baso # (Auto) 0.03 (0.02-0.10) K/uL Sodium 138 (136-145) mmol/L Potassium 4.4 (3.5-5.1) mmol/L Chloride 104 (98-107) mmol/L Carbon Dioxide 24.6 (21.0-32.0) mmol/L Anion Gap 13.8 (5.0-15.0) mmol/L BUN 18 D (8-26) mg/dL Creatinine 1.09 H D (0.55-1.02) mg/dL Est Cr Clr Drug Dosing 48.77 mL/min Estimated GFR (MDRD) 51 L (>60) MLS/MIN BUN/Creatinine Ratio 16.5 (6-25) Glucose 249 H D (74-100) mg/dL POC Glucose (74-110) mg/dL Calcium 8.5 (8.5-10.1) mg/dL Magnesium 2.0 D (1.8-2.4) mg/dL Total Bilirubin 0.3 (0.0-1.0) mg/dL AST 9 L (15-37) U/L ALT 13 (12-78) U/L Alkaline Phosphatase 78 (46-116) U/L Total Protein 6.5 (6.4-8.2) g/dL Albumin 3.1 L (3.4-5.0) g/dL Globulin 3.4 (2.2-4.2) g/dL Albumin/Globulin Ratio 0.9 (0.8-2.0) Med Orders - Current: Current Medications Albuterol (Ventolin Hfa) 8 gm INH Q6H PRN PRN Reason: Shortness of Breath Aspirin (Halfprin) 162 mg PO DAILY [facility] Last Admin: 12/17/18 09:20 Dose: Not Given Atorvastatin Calcium (Lipitor) 40 mg PO BEDTIME [facility] Bupropion HCl (Wellbutrin Sr) 150 mg PO DAILY [facility] Last Admin: 12/17/18 09:15 Dose: 150 mg Calcium Carbonate (Caltrate 600+D 1500 Mg-400 Units) 1 tab PO DAILY [facility] Last Admin: 12/17/18 09:14 Dose: 1 tab Gabapentin (Neurontin) 800 mg PO BID [facility] Last Admin: 12/17/18 09:15 Dose: 800 mg Glipizide (Glucotrol) 5 mg PO BIDMEALS [facility] Last Admin: 12/17/18 09:16 Dose: 5 mg Magnesium Sulfate 2 gm/ Premix 50 mls @ 25 mls/hr IV DAILY [facility] Last Admin: 12/17/18 09:20 Dose: Not Given Ibuprofen (Motrin) 400 mg PO TID PRN PRN Reason: PAIN Insulin Aspart (Novolog) 0 unit SUBCUT TIDMEALS [facility]; Protocol Last Admin: 12/17/18 08:26 Dose: 6 units Lisinopril (Prinivil) 2.5 mg PO DAILY [facility] Last Admin: 12/17/18 09:16 Dose: 2.5 mg Magnesium Oxide (Magnesium Oxide) 800 mg PO BID [facility] Last Admin: 12/17/18 09:17 Dose: 800 mg Metformin HCl (Glucophage) 1,000 mg PO BID [facility] Last Admin: 12/17/18 09:14 Dose: 1,000 mg Metoprolol Succinate (Toprol Xl) 25 mg PO DAILY [facility] Last Admin: 12/17/18 09:18 Dose: 25 mg Metoprolol Succinate (Toprol Xl) 25 mg PO DAILY [facility] Megestrol 40mg (Tablet) 2 each PO TID [facility] Last Admin: 12/17/18 09:13 Dose: 2 each Cyproheptadine 4mg (Tablets) 1 each PO BIDAC [facility] Risperidone 2mg (Tablet) 1 each PO DAILY@1200 [facility] Chantix Starting (Dose Pack) 1 each PO BID [facility] Last Admin: 12/17/18 09:22 Dose: 1 each Omeprazole (Omeprazole) 20 mg PO BIDAC [facility] Last Admin: 12/17/18 06:49 Dose: 20 mg Ondansetron HCl (Zofran Odt) 4 mg PO DAILY [facility] Last Admin: 12/17/18 09:21 Dose: Not Given Risperidone (Risperidal) 1 mg PO DAILY@1200 [facility] Sodium Chloride (Saline Flush) 10 ml FLUSH ASDIRECTED PRN PRN Reason: Keep Vein Open Last Admin: 12/16/18 21:46 Dose: 10 ml Venlafaxine HCl (Effexor Xr) 225 mg PO DAILY [facility] Last Admin: 12/17/18 09:19 Dose: 225 mg Discontinued Medications Glipizide (Glucotrol) 5 mg PO BID [facility] Potassium Chloride/Sodium Chloride (Normal Saline With 40 Meq Kcl) 1,000 mls @ 100 mls/hr IV ASDIRECTED [facility] Magnesium Sulfate/Dextrose (Magnesium Sulfate In D5w 100 Premix) Confirm Administered Dose 200 mls @ as directed .ROUTE .[facility] Stop: 12/16/18 21:36 Last Admin: 12/16/18 21:52 Dose: Not Given Chantix Starting (Dose Pack) 1 each PO ASDIRECTED [facility] - Exam General: Alert, Oriented, Cooperative HEENT: Pupils Equal, Pupils Reactive, EOMI Neck: Supple Lungs: Clear to Auscultation, Normal Respiratory Effort Cardiovascular: Regular Rate, Regular Rhythm GI/Abdominal Exam: Normal Bowel Sounds Back Exam: Normal Inspection Extremities: Normal Inspection, No Pedal Edema - Problem List & Annotations (1) Hyperglycemia SNOMED Code(s): 91352630 Code(s): R73.9 - HYPERGLYCEMIA, UNSPECIFIED Status: Acute Priority: High - Problem List Review Problem List Initiated/Reviewed/Updated: Yes - My Orders Last 24 Hours: My Active Orders 12/16/18 20:15 Admission Status [Patient Status] [ADT] Routine 12/16/18 20:47 Sodium Chloride 0.9% [Saline Flush] 10 ml FLUSH ASDIRECTED PRN Peripheral IV Insertion Adult [OM.PC] Routine 12/16/18 21:00 Insulin Aspart [NovoLOG] See Protocol SUBCUT TIDMEALS 12/16/18 21:35 CULTURE MRSA SURVEY [RM] Routine 12/17/18 07:00 Omeprazole 20 mg PO BIDAC 12/17/18 08:00 Aspirin [Halfprin] 162 mg PO DAILY Calcium Carbonate/Vitamin D3 [Caltrate 600+D 1500 MG-400 Units] 1 tab PO DAILY Gabapentin [Neurontin] 800 mg PO BID Lisinopril [Prinivil] 2.5 mg PO DAILY Magnesium Oxide 800 mg PO BID Magnesium Sulfate/Water [Magnesium Sulfate in Water Premix] 2 gm Premix Bag 1 bag IV DAILY Metoprolol Succinate [Toprol XL] 25 mg PO DAILY Non-Formulary Medication [NF Drug] 1 each PO BID Ondansetron [Zofran ODT] 4 mg PO DAILY Venlafaxine [Effexor XR] 225 mg PO DAILY buPROPion [Wellbutrin SR] 150 mg PO DAILY glipiZIDE [Glucotrol] 5 mg PO BIDMEALS metFORMIN [Glucophage] 1,000 mg PO BID 12/17/18 08:55 Albuterol [Ventolin HFA] 8 gm INH Q6H PRN 12/17/18 12:00 Non-Formulary Medication [NF Drug] 1 each PO DAILY@1200 risperiDONE [RisperiDAL] 1 mg PO DAILY@1200 12/17/18 14:00 Ibuprofen [Motrin] 400 mg PO TID PRN Non-Formulary Medication [NF Drug] 2 each PO TID 12/17/18 20:00 Non-Formulary Medication [NF Drug] 1 each PO BIDAC atorvaSTATin [Lipitor] 40 mg PO BEDTIME 12/17/18 Breakfast Consistent Carbohydrate Diet [DIET] 12/18/18 05:11 CBC WITH AUTO DIFF [HEME] AM COMPREHENSIVE METABOLIC PN,CMP [CHEM] AM MAGNESIUM [CHEM] AM 12/18/18 08:00 Metoprolol Succinate [Toprol XL] 25 mg PO DAILY - Plan Plan:: Patient plan to manage hyperglycemia. We will continue monitoring and management of glucose and consider d/c when it is stabilized.
[2018-12-17] MEDS ORDERED: RISPERIDONE 2 MG PO SCH (12:00)
[2018-12-17] MEDS ORDERED: risperiDONE 1 MG Tab PO SCH ×2 (12:00)
[2018-12-17 12:16] VITALS: BP 112/60; PULSE 80
[2018-12-17] MEDS ORDERED: Ibuprofen 400 MG Tab PO PRN (14:00)
--- NOTE | 2018-12-17 16:32 | PCM.DCSUM1 ---
Discharge Summary - Discharge Data Discharge Date: 12/17/18 Discharge Disposition: Home, Self-Care 01 Condition: Good - Discharge Diagnosis/Problem(s) (1) Hyperglycemia SNOMED Code(s): 83761733 ICD Code: R73.9 - HYPERGLYCEMIA, UNSPECIFIED Status: Acute Priority: High Current Visit: Yes - Patient Instructions Diet: Heart Healthy Diet Activity: As Tolerated Driving: Do Not Drive - Discharge Plan Home Medications: Home Meds Lisinopril 2.5 mg PO DAILY 03/08/13 [History] Metoprolol Succinate 25 mg PO DAILY 03/08/13 [History] Ibuprofen 800 mg PO TID PRN 02/11/14 [History] Venlafaxine HCl [Venlafaxine ER] 225 mg PO DAILY 08/07/14 [History] metFORMIN [Glucophage] 1,000 mg PO BID 08/07/14 [History] risperiDONE [RisperiDAL] 3 mg PO DAILY 08/07/14 [History] Gabapentin [Neurontin] 800 mg PO BID 03/12/15 [History] Omeprazole 20 mg PO BID 02/22/17 [History] Albuterol [Ventolin HFA] 2 puff .XX Q6HR 12/16/18 [History] Calcium Carbonate/Vitamin D3 [Calcium 600 + Vit D Tablet] 2 each PO DAILY [History] Cyproheptadine HCl 4 mg PO BID 12/16/18 [History] Magnesium Oxide [Magnesium] 800 mg PO DAILY 12/16/18 [History] Megestrol [Megace] 80 mg PO DAILY 12/16/18 [History] Ondansetron HCl [Zofran] 4 mg PO DAILY 12/16/18 [History] Varenicline [Chantix] 1 mg PO DAILY 12/16/18 [History] atorvaSTATin [Lipitor] 40 mg PO DAILY 12/16/18 [History] buPROPion [buPROPion XL] 150 mg PO DAILY 12/16/18 [History] glipiZIDE [Glipizide ER] 5 mg PO DAILY 12/16/18 [History] Aspirin 162 mg PO DAILY 12/17/18 [History] Patient Handouts: Hypomagnesemia, Hyperglycemia, Viqt-of-Tgit - Discharge Summary/Plan Comment DC Time >30 min.: Yes Discharge Summary/Plan Comment: Patient will be discharged home. She will plan for travel to [facility] prior to for her cardiac cath with Dr. Madrid and f/u with Dr. Mccollum for PAD. Patient counseled on medications and discharge instructions. Patient has contacted [place] for appointment confirmation and f/u. - General Info Date of Service: 12/17/18 Functional Status: Reports: Pain Controlled, Tolerating Diet, Ambulating, Urinating - Review of Systems General: Reports: No Symptoms HEENT: Reports: No Symptoms Pulmonary: Reports: No Symptoms Cardiovascular: Reports: No Symptoms Gastrointestinal: Reports: No Symptoms Genitourinary: Reports: No Symptoms Musculoskeletal: Reports: No Symptoms Skin: Reports: No Symptoms Neurological: Reports: No Symptoms Psychiatric: Reports: No Symptoms - Patient Data Vitals - Most Recent: Last Vital Signs Temp 37.2 C 12/17/18 08:00 Pulse 80 12/17/18 12:00 Resp 16 12/17/18 08:00 BP 112/60 12/17/18 12:00 Pulse Ox 100 12/17/18 12:00 Weight - Most Recent: 67.495 kg I&O - Last 24 hours: Intake & Output 12/17/18 12/17/18 12/17/18 06:59 14:59 22:59 Intake Total 500 Balance 500 Lab Results - Last 24 hrs: Laboratory Results - last 24 hr 12/16/18 12/17/18 12/17/18 Range/Units 20:50 01:42 07:19 WBC (4.0-11.0) K/uL RBC (3.80-5.80) M/uL Hgb (11.5-16.5) g/dL Hct (37.0-47.0) % MCV (76-96) fL MCH (27.0-32.0) pg MCHC (31.0-35.0) g/dL RDW (11.0-16.0) % Plt Count (150-500) K/uL MPV (6.0-10.0) fL Neut % (Auto) (45.0-70.0) % Lymph % (Auto) (20.0-40.0) % [place] % (Auto) (3.0-10.0) % Eos % (Auto) (1.0-5.0) % Baso % (Auto) (0.0-0.5) % Neut # (Auto) (2.00-7.50) K/uL Lymph # (Auto) (1.50-4.00) K/uL [place] # (Auto) (0.20-0.80) K/uL Eos # (Auto) (0.04-0.40) K/uL Baso # (Auto) (0.02-0.10) K/uL Sodium (136-145) mmol/L Potassium (3.5-5.1) mmol/L Chloride (98-107) mmol/L Carbon Dioxide (21.0-32.0) mmol/L Anion Gap (5.0-15.0) mmol/L BUN (8-26) mg/dL Creatinine (0.55-1.02) mg/dL Est Cr Clr Drug Dosing mL/min Estimated GFR (MDRD) (>60) MLS/MIN BUN/Creatinine Ratio (6-25) Glucose (74-100) mg/dL POC Glucose 387 H 244 H 243 H (74-110) mg/dL Calcium (8.5-10.1) mg/dL Magnesium (1.8-2.4) mg/dL Total Bilirubin (0.0-1.0) mg/dL AST (15-37) U/L ALT (12-78) U/L Alkaline Phosphatase (46-116) U/L Total Protein (6.4-8.2) g/dL Albumin (3.4-5.0) g/dL Globulin (2.2-4.2) g/dL Albumin/Globulin Ratio (0.8-2.0) 12/17/18 12/17/18 12/17/18 Range/Units 07:25 07:25 10:49 WBC 11.3 H (4.0-11.0) K/uL RBC 3.47 L (3.80-5.80) M/uL Hgb 10.8 L (11.5-16.5) g/dL Hct 32.9 L (37.0-47.0) % MCV 95 (76-96) fL MCH 31.1 (27.0-32.0) pg MCHC 32.8 (31.0-35.0) g/dL RDW 14.5 (11.0-16.0) % Plt Count 265 (150-500) K/uL MPV 9.3 (6.0-10.0) fL Neut % (Auto) 62.4 (45.0-70.0) % Lymph % (Auto) 30.7 (20.0-40.0) % [place] % (Auto) 6.6 (3.0-10.0) % Eos % (Auto) 0.0 L (1.0-5.0) % Baso % (Auto) 0.3 (0.0-0.5) % Neut # (Auto) 7.03 (2.00-7.50) K/uL Lymph # (Auto) 3.46 (1.50-4.00) K/uL [place] # (Auto) 0.74 (0.20-0.80) K/uL Eos # (Auto) 0.00 L (0.04-0.40) K/uL Baso # (Auto) 0.03 (0.02-0.10) K/uL Sodium 138 (136-145) mmol/L Potassium 4.4 (3.5-5.1) mmol/L Chloride 104 (98-107) mmol/L Carbon Dioxide 24.6 (21.0-32.0) mmol/L Anion Gap 13.8 (5.0-15.0) mmol/L BUN 18 D (8-26) mg/dL Creatinine 1.09 H D (0.55-1.02) mg/dL Est Cr Clr Drug Dosing 48.77 mL/min Estimated GFR (MDRD) 51 L (>60) MLS/MIN BUN/Creatinine Ratio 16.5 (6-25) Glucose 249 H D (74-100) mg/dL POC Glucose 409 H* (74-110) mg/dL Calcium 8.5 (8.5-10.1) mg/dL Magnesium 2.0 D (1.8-2.4) mg/dL Total Bilirubin 0.3 (0.0-1.0) mg/dL AST 9 L (15-37) U/L ALT 13 (12-78) U/L Alkaline Phosphatase 78 (46-116) U/L Total Protein 6.5 (6.4-8.2) g/dL Albumin 3.1 L (3.4-5.0) g/dL Globulin 3.4 (2.2-4.2) g/dL Albumin/Globulin Ratio 0.9 (0.8-2.0) 12/17/18 12/17/18 12/17/18 Range/Units 12:30 13:31 16:03 WBC (4.0-11.0) K/uL RBC (3.80-5.80) M/uL Hgb (11.5-16.5) g/dL Hct (37.0-47.0) % MCV (76-96) fL MCH (27.0-32.0) pg MCHC (31.0-35.0) g/dL RDW (11.0-16.0) % Plt Count (150-500) K/uL MPV (6.0-10.0) fL Neut % (Auto) (45.0-70.0) % Lymph % (Auto) (20.0-40.0) % [place] % (Auto) (3.0-10.0) % Eos % (Auto) (1.0-5.0) % Baso % (Auto) (0.0-0.5) % Neut # (Auto) (2.00-7.50) K/uL Lymph # (Auto) (1.50-4.00) K/uL [place] # (Auto) (0.20-0.80) K/uL Eos # (Auto) (0.04-0.40) K/uL Baso # (Auto) (0.02-0.10) K/uL Sodium (136-145) mmol/L Potassium (3.5-5.1) mmol/L Chloride (98-107) mmol/L Carbon Dioxide (21.0-32.0) mmol/L Anion Gap (5.0-15.0) mmol/L BUN (8-26) mg/dL Creatinine (0.55-1.02) mg/dL Est Cr Clr Drug Dosing mL/min Estimated GFR (MDRD) (>60) MLS/MIN BUN/Creatinine Ratio (6-25) Glucose 363 H D (74-100) mg/dL POC Glucose 338 H 170 H (74-110) mg/dL Calcium (8.5-10.1) mg/dL Magnesium (1.8-2.4) mg/dL Total Bilirubin (0.0-1.0) mg/dL AST (15-37) U/L ALT (12-78) U/L Alkaline Phosphatase (46-116) U/L Total Protein (6.4-8.2) g/dL Albumin (3.4-5.0) g/dL Globulin (2.2-4.2) g/dL Albumin/Globulin Ratio (0.8-2.0) Med Orders - Current: Current Medications Albuterol (Ventolin Hfa) 8 gm INH Q6H PRN PRN Reason: Shortness of Breath Aspirin (Halfprin) 162 mg PO DAILY [facility] Last Admin: 12/17/18 09:20 Dose: Not Given Atorvastatin Calcium (Lipitor) 40 mg PO BEDTIME [facility] Bupropion HCl (Wellbutrin Sr) 150 mg PO DAILY [facility] Last Admin: 12/17/18 09:15 Dose: 150 mg Calcium Carbonate (Caltrate 600+D 1500 Mg-400 Units) 1 tab PO DAILY [facility] Last Admin: 12/17/18 09:14 Dose: 1 tab Gabapentin (Neurontin) 800 mg PO BID [facility] Last Admin: 12/17/18 09:15 Dose: 800 mg Glipizide (Glucotrol) 5 mg PO BIDMEALS [facility] Last Admin: 12/17/18 09:16 Dose: 5 mg Magnesium Sulfate 2 gm/ Premix 50 mls @ 25 mls/hr IV DAILY [facility] Last Admin: 12/17/18 09:20 Dose: Not Given Ibuprofen (Motrin) 400 mg PO TID PRN PRN Reason: PAIN Insulin Aspart (Novolog) 0 unit SUBCUT TIDMEALS [facility]; Protocol Last Admin: 12/17/18 13:22 Dose: 18 units Lisinopril (Prinivil) 2.5 mg PO DAILY [facility] Last Admin: 12/17/18 09:16 Dose: 2.5 mg Magnesium Oxide (Magnesium Oxide) 800 mg PO BID [facility] Last Admin: 12/17/18 09:17 Dose: 800 mg Metformin HCl (Glucophage) 1,000 mg PO BID [facility] Last Admin: 12/17/18 09:14 Dose: 1,000 mg Metoprolol Succinate (Toprol Xl) 25 mg PO DAILY [facility] Last Admin: 12/17/18 09:18 Dose: 25 mg Metoprolol Succinate (Toprol Xl) 25 mg PO DAILY [facility] Megestrol 40mg (Tablet) 2 each PO TID [facility] Last Admin: 12/17/18 14:15 Dose: 2 each Cyproheptadine 4mg (Tablets) 1 each PO BIDAC [facility] Risperidone 2mg (Tablet) 1 each PO DAILY@1200 [facility] Last Admin: 12/17/18 13:23 Dose: 1 each Chantix Starting (Dose Pack) 1 each PO BID [facility] Last Admin: 12/17/18 09:22 Dose: 1 each Omeprazole (Omeprazole) 20 mg PO BIDAC [facility] Last Admin: 12/17/18 06:49 Dose: 20 mg Ondansetron HCl (Zofran Odt) 4 mg PO DAILY [facility] Last Admin: 12/17/18 09:21 Dose: Not Given Risperidone (Risperidal) 1 mg PO DAILY@1200 [facility] Last Admin: 12/17/18 13:23 Dose: 1 mg Sodium Chloride (Saline Flush) 10 ml FLUSH ASDIRECTED PRN PRN Reason: Keep Vein Open Last Admin: 12/16/18 21:46 Dose: 10 ml Venlafaxine HCl (Effexor Xr) 225 mg PO DAILY [facility] Last Admin: 12/17/18 09:19 Dose: 225 mg Discontinued Medications Glipizide (Glucotrol) 5 mg PO BID [facility] Potassium Chloride/Sodium Chloride (Normal Saline With 40 Meq Kcl) 1,000 mls @ 100 mls/hr IV ASDIRECTED [facility] Magnesium Sulfate/Dextrose (Magnesium Sulfate In D5w 100 Premix) Confirm Administered Dose 200 mls @ as directed .ROUTE .STK-MED ONE Stop: 12/16/18 21:36 Last Admin: 12/16/18 21:52 Dose: Not Given Chantix Starting (Dose Pack) 1 each PO ASDIRECTED [facility] - Exam General: Reports: Alert, Oriented HEENT: Reports: Pupils Equal, Pupils Reactive, EOMI Neck: Reports: Supple Lungs: Reports: Clear to Auscultation, Normal Respiratory Effort Cardiovascular: Reports: Regular Rate, Regular Rhythm GI/Abdominal Exam: Normal Bowel Sounds Back Exam: Reports: Normal Inspection Extremities: Normal Inspection Skin: Reports: Warm, Dry, Intact
[2018-12-17] MEDS ORDERED: atorvaSTATin 40 MG Tab PO SCH (20:00)
[2018-12-17] MEDS ORDERED: CYPROHEPTADINE 4 MG PO SCH (20:00)
[2018-12-18] MEDS ORDERED: Metoprolol Succinate 25 MG Tab.ER PO SCH (08:00)
== END 2018-12-17 18:30 | disposition home or self-care (01) ==
LOC: UNDOADMOB 18:42 → LB.MS 18:42
PROVIDERS: ADMIT Family Medicine; ATTEND Family Medicine
DX: E11.65 Type 2 diabetes mellitus with hyperglycemia (principal); E11.40 Type 2 diabetes mellitus with diabetic neuropathy, unspecified; E78.00 Pure hypercholesterolemia, unspecified; I10 Essential (primary) hypertension; Z95.5 Presence of coronary angioplasty implant and graft; J44.9 Chronic obstructive pulmonary disease, unspecified; M54.9 Dorsalgia, unspecified; G89.29 Other chronic pain; Z79.899 Other long term (current) drug therapy; Z79.84 Long term (current) use of oral hypoglycemic drugs; Z79.82 Long term (current) use of aspirin; Z88.6 Allergy status to analgesic agent; Z88.0 Allergy status to penicillin; Z88.8 Allergy status to other drugs, medicaments and biological substances; Z91.09 Other allergy status, other than to drugs and biological substances
CPT/HCPCS: 36415; 80053; 82947; 82962; 83735; 85025; 96374; A9270; G0378; G0379; J3475; 96372